=== PATIENT | female | born 1995 | race Caucasian/White ===

== ENCOUNTER 2017-09-09 07:50 | Inpatient (IN) | payer OTHER ==
[2017-09-09 08:35] VITALS: BMI 31.4
[2017-09-09 09:05] LABS: BASOPHIL 0.2 % (0-2.0); EOSINOPHIL 0.4 % (0-4.5); MCH 25.9 pg (25.7-33.7); MCHC 32.9 g/dl (32.0-36.0); MEAN CELL VOLUME 78.8 fl (80-96); MEAN PLT VOLUME 8.3 fl (7.5-11.1); NEUTROPHILS 73.7 % (42.8-82.8); PLATELET COUNT 261 K/MM3 (134-434); RDW 17.8 % (11.6-15.6); WHITE BLOOD COUNT 10.3 K/mm3 (4.0-10.0)
--- NOTE | 2017-09-09 09:08 | HP ---
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: Alzheimer's, CVA, Dementia, Migraine, Multiple Sclerosis, Peripheral Neuropathy, Parkinson's, Seizure, Syncope, TIA, Vertigo, Other Cardiovascular: No: AFIB, Aneurysm, Aortic Insufficiency, Aortic Stenosis, CAD, CHF, Deep Vein Thrombosis, HTN, Hyperlipdemia, WI, Mitral Insufficiency, Mitral Stenosis, Murmur, Pulmonary Hypertension, Other Pulmonary: Yes: Other (PPD(+)) Gastrointestinal: No: Ascites, Cancer, Constipation, Crohn's Disease, Diverticulitis, Diverticulosis, Esophageal Varices, Gastritis, GERD, GI Bleed, Hemorrhoids, Hiatal Hernia, Inflamatory Bowel Disease, Irritable Bowel Disease, Pancreatitis, Peptic Ulcer Disease, Ulcerative Colitis, Other Hepatobiliary: No: Cirrhosis, Cholelithiasis, Cholecystitis, Choledocholithiasis , Hepatitis A, Hepatitis B, Hepatitis C, Other Renal/: No: Renal Failure, Renal Inusuff, BPH, Cancer, Hematuria, Hemodialysis , Neurogenic Bladder, Renal Calculi, UTI, Other ...: 1 ...Para: 0 ...Term: 0 ...: 0 ...Spon : 0 ...Induced : 0 ...Multiple Gestation: 0 ...LMP: 12/16/16 ... Weeks Gestation by Dates: 40.6 ...EDC by Dates: 09/22/17 ...EDC by Sono: 09/03/17 Additional OB History: LIDA/IUD was removed at 37wks Heme/Onc: No: Anemia, B12 Deficiency, Bleeding Disorder, Cancer, Current Chemotherapy, Current Radiation Therapy, Hemochromatosis, Hypercoaguable State, Myeloproliferative Synd, Sickle Cell Disease, Sickle Cell Trait, Thrombocytopenia, Other Infectious Disease: No: AIDS, C-Diff, Herpes Zoster, HIV, MRSA, STD's, Tuberculosis, VREF, Other Psych: No: Addictions, Anxiety, Bipolar, Depression, Panic, Psychosis, Schizophrenia, Other Musculoskeletal: No: Bursitis, Chronic low back pain, Hemiparesis, Hemiplegia, Osteoarthritis, Paraplegia, Other Rheumatology: No: Fibromyalgia, Gout, Lupus, Rheumatoid Arthritis, Sarcoidosis, Vasculitis, Other ENT: No: Allergic Rhinitis, Sinusitis, Other Endocrine: No: Seth's Disease, Nava's Disease, Diabetes Insipidus, Diabetes Mellitus, Hyperparathyroidism, Hyperthyroidism, Hypothyroidism, Osteopenia, SIADH, Other Dermatology: No: Basal Cell, Cellulitis, Eczema, Melanoma, Psoriasis, Squamous Cell, Other - Past Surgical History Past Surgical History: Yes: None Hx Myomectomy: No Hx Transabdominal Cerclage: No - Smoking History Smoking history: Never smoked Have you smoked in the past 12 months: No - Alcohol/Substance Use Hx Alcohol Use: No History of Substance Use: reports: None - Social History Usual Living Arrangement: Yes: With Parent ADL: Independent History of Recent Travel: No Home Medications - Allergies Allergies/Adverse Reactions: Allergies Allergy/AdvReac Type Severity Reaction Status Date / Time No Known Allergies Allergy Verified 09/09/17 08:35 - Home Medications Home Medications: Ambulatory Orders Vit Calc,Iron,Folic [ Vitamins] 1 each PO DAILY 09/09/17 Family Disease History - Family Disease History Family History: Unremarkable Review of Systems - Review of Systems Constitutional: reports: No Symptoms Eyes: reports: No Symptoms HENT: reports: No Symptoms Neck: reports: No Symptoms Cardiovascular: reports: No Symptoms Respiratory: reports: No Symptoms Gastrointestinal: reports: No Symptoms Genitourinary: reports: No Symptoms Breasts: reports: No Symptoms Reported Musculoskeletal: reports: No Symptoms Integumentary: reports: No Symptoms Neurological: reports: No Symptoms Endocrine: reports: No Symptoms Hematology/Lymphatic: reports: No Symptoms Psychiatric: reports: No Symptoms Pain Intensity: 0 Physical Exam - Maternity Vital Signs: Vital Signs Temperature 97.9 F 09/09/17 08:15 Pulse Rate 90 09/09/17 08:15 Respiratory Rate 18 09/09/17 08:15 Blood Pressure 129/83 09/09/17 08:15 O2 Sat by Pulse Oximetry (%) Constitutional: Yes: Well Nourished, No Distress, Calm Eyes: Yes: WNL, Conjunctiva Clear HENT: Yes: WNL, Atraumatic, Normocephalic Neck: Yes: WNL, Supple, Trachea Midline Cardiovascular: Yes: WNL, Regular Rate and Rhythm Lungs: Clear to auscultation, Normal air movement - Abdominal Exam/OB Fundal Height: 40 Number of Fetuses: Single Presentation: Vertex Contractions: Yes Regularity: Irregular Intensity: Unaware Monitor Mode: External Heart Rate (range): 140 Heart Rate Location: Midline Category: I Accelerations: Uniform Decelerations: None - Vaginal Exam/OB Vaginal Bleediing: No Speculum Exam: No Dilatation (cm): 3 Effacement (%): 70 Amniotic Membrane Status: Intact Presentation: Vertex/Position Station: -3 (Adequate gynecoid pelvimetry, EFW ~3300gm) - Physical Exam Musculoskeletal: Yes: WNL Extremities: Yes: WNL Edema: Yes Edema: LLE: Trace, RLE: Trace Integumentary: Yes: WNL Deep Tendon Reflex Grade: Normal +2 ...Motor Strength: WNL Psychiatric: Yes: WNL, Alert, Oriented Hemorrhage Risk Assessment - Risk Factors Medium Risk Factors: Yes: None High Risk Factors: Yes: None Risk Score: 1 Risk Level: Medium Risk Imaging - Results Ultrasound: Report Reviewed Assessment/Plan 22yo P0 with at EGA 40w6d admitted for labor indx. Fetus with Category I tracing. We had land discussion re: risks, benefits, and alternatives of labor induction. I explained the options of expectant management awaiting spontaneous labor, induction of labor, and elective section. The risks of uterine tachysystole, distress, uterine rupture, need for emergency C/S, hemorrhage, infection, scarring, etc. were discussed. We also discussed the risks of meconium aspiration, shoulder dystocia , and anesthesia options.
[2017-09-09] MEDS: DEXTROSE 5%-LACTATED RINGERS 1,000 ML IV SCH ×2 (09:15→16:30)
[2017-09-09 09:26] LABS: ANION GAP 8 (8-16); CO2 24 mmol/L (21-32); CREATININE 0.5 mg/dL (0.55-1.02); GLUCOSE,RANDOM 72 mg/dL (74-106)
[2017-09-09] MEDS ORDERED: OXYTOCIN 15 UNITS/ LR 250 ML 250 ML IVPB SCH (09:30)
[2017-09-09] MEDS ORDERED: SODIUM CHLORIDE 1,000 ML IV SCH (09:56)
[2017-09-09 10:06] LABS: INR 0.97 (0.82-1.09)
[2017-09-09 10:09] LABS: ACTIVATED PTT 26.4 SECONDS (26.9-34.4)
[2017-09-09] MEDS ORDERED: ELECTROLYTE-148 SOLN 1,000 ML IV SCH (19:45)
[2017-09-09] MEDS ORDERED: FENTANYL/BUPIVACAINE/NS/PF - PCEA - 50 ML DISP.SYRIN EP SCH (20:30)
--- NOTE | 2017-09-09 21:06 | PN ---
Ante-Partal Exam - Subjective Subjective: Pt w/o complaints; s/p epidural, s/p AROM at 19:05 Vital Signs: Vital Signs Temperature 98.3 F 09/09/17 18:40 Pulse Rate 69 09/09/17 18:40 Respiratory Rate 18 09/09/17 18:40 Blood Pressure 118/72 09/09/17 18:40 O2 Sat by Pulse Oximetry (%) Bleeding: No Headache: No Visual changes: No Right upper quadrant pain: No Pain (scale 1-10): 0 - Contractions Contractions: Yes Regularity: Regular Intensity: Moderate Monitor Mode: External - Exam during Labor Heart Rate: 135 Variability: Moderate Heart Rate Location: Midline Category: I Monitor Accelerations: Present Monitor Decelerations: Early Exam: Vaginal Dilatation (cm): 5 Effacement (%): 90 Amniotic Membrane Status: Ruptured Amniotic Fluid: Clear Presentation: Vertex Station: -2 - Intrapartum Hemorrhage Risk Medium Risk Factors: None High Risk Factors: None Risk Score: 0 Risk Level: Low Risk - Assessment/Plan Assessment/Plan: 22yo P0 with pregnacy at EGA 40w6d admitted for labor induction. Fetus with Category I tracing and occasional early decels. Pt progressed to 5cm. Plan to continue monitoring labor progress.
[2017-09-10] MEDS ORDERED: BENZOCAINE 28 GM HEMORRHOIDAL OINTMENT TP PRN (02:28)
[2017-09-10] MEDS ORDERED: BENZOCAINE 20% 57 GM BOTTLE TP PRN (02:28)
[2017-09-10] MEDS ORDERED: IBUPROFEN 600 MG TABLET (FP) PO PRN (02:28)
[2017-09-10] MEDS ORDERED: BISACODYL 10 MG SUPP.RECT RC PRN (02:28)
[2017-09-10] MEDS ORDERED: METHYLERGONOVINE MALEATE 0.2 MG/1 ML AMP IM PRN (02:28)
[2017-09-10] MEDS ORDERED: ACETAMINOPHEN 325 MG TABLET (FP) PO PRN (02:28)
[2017-09-10] MEDS ORDERED: WITCH HAZEL 50% (TUCKS) 40 PAD/JAR PAD TP PRN (02:28)
[2017-09-10] MEDS ORDERED: D5W-LR W/ 20 UNITS OXYTOCIN 1,000 ML IV SCH (02:30)
--- NOTE | 2017-09-10 04:01 | RAPID ---
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 was getting up from bed, when she felt lightheaded No chest pain or pressure Had NVD DID NOT hit head Physical: VS: Vital Signs Period Temp Pulse Resp BP Sys/Joshi Pulse Ox Last 24 Hr 97.9 F-99.4 F 64-106 18-20 104-153/51-92 100-100 GEN: NAD, AA0X3, Resting in bed, speaking full sentences HEENT: NCAT, PERRL, Throat without erythema or exudates CARD: RRR S1, S2 RESP: CTAB ABD: BSx4, NTD to palpation EXT:- C/C/E A/P.) Syncope - Most likely has Vasovagal - Check CBC - FS checked 113 - Will continue to monitor Labs: CBC, BMP 09/09/17 08:55 09/09/17 08:55
[2017-09-10 04:04] LABS: MCH 25.7 pg (25.7-33.7); MCHC 32.4 g/dl (32.0-36.0); MEAN CELL VOLUME 79.2 fl (80-96); MEAN PLT VOLUME 8.9 fl (7.5-11.1); PLATELET COUNT 265 K/MM3 (134-434); RDW 17.7 % (11.6-15.6); WHITE BLOOD COUNT 21.4 K/mm3 (4.0-10.0)
--- NOTE | 2017-09-10 04:07 | RAPID ---
Physical Examination Vital Signs: Vital Signs Temperature 98.1 F 09/10/17 03:15 Pulse Rate 96 H 09/10/17 03:15 Respiratory Rate 20 09/10/17 03:15 Blood Pressure 117/70 09/10/17 03:15 O2 Sat by Pulse Oximetry (%) 100 09/10/17 03:15 Constitutional: Yes: Pallor Eyes: Yes: WNL HENT: Yes: WNL Cardiovascular: Yes: Tachycardia. No: Murmur Respiratory: Yes: WNL Labs: CBC, BMP 09/09/17 08:55 09/09/17 08:55 Rapid Response - Rapid Response Assessment: rapid response called for this 22 year old female P1 s/p delivery with no significant PMH who had a witnessed episode of syncope while walking to the bathroom. Per patient, she became flushed, hot, and heard muffled sounds before losing consciousness. Pt did not fall down or hit any part of her body. Vital signs revealed a BP of 110/60, HR of 84, RR of 20, and O2 sat of 98%. Her BGM was 113. Exam showed a pale-appearing woman with tachycardia, no murmurs, lungs that were CTAB without rales or wheezing. Assessment: 22F w/ no significant PMH who syncopized shortly after delivery while getting up from her bed, 2/2 to vasovagal response vs. orthostatic hypotension in the setting of blood loss from delivery Plan: -orthostatic vitals -CBC -continue fluids
[2017-09-10 05:55] LABS: METAMYELOCYTE 1 % (0-2); PLATELET ESTIMATE ADEQUATE (NORMAL); TOTAL CELLS COUNTED 100
--- NOTE | 2017-09-10 08:29 | PN ---
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 [id number].
[2017-09-10] MEDS: PRENATAL VITAMINS W/ FOLIC ACID TABLET (FP) PO SCH (11:55)
[2017-09-10 17:51] LABS: BASOPHIL 0.2 % (0-2.0); EOSINOPHIL 0.2 % (0-4.5); MCH 25.9 pg (25.7-33.7); MCHC 32.9 g/dl (32.0-36.0); MEAN CELL VOLUME 78.8 fl (80-96); NEUTROPHILS 71.8 % (42.8-82.8); PLATELET COUNT 222 K/MM3 (134-434); RDW 17.9 % (11.6-15.6); WHITE BLOOD COUNT 11.7 K/mm3 (4.0-10.0)
[2017-09-11 08:44] LABS: BASOPHIL 0.2 % (0-2.0); EOSINOPHIL 0.5 % (0-4.5); MCH 26.8 pg (25.7-33.7); MCHC 33.8 g/dl (32.0-36.0); MEAN CELL VOLUME 79.2 fl (80-96); MEAN PLT VOLUME 8.4 fl (7.5-11.1); NEUTROPHILS 68.4 % (42.8-82.8); PLATELET COUNT 182 K/MM3 (134-434); RDW 16.5 % (11.6-15.6); WHITE BLOOD COUNT 10.5 K/mm3 (4.0-10.0)
[2017-09-11] MEDS: PRENATAL VITAMINS W/ FOLIC ACID TABLET (FP) PO SCH (09:13)
--- NOTE | 2017-09-11 10:17 | PN ---
Post Progress Note - Subjective Subjective: Patient without acute complaints. Reports tolerating oral intake without nausea or vomiting. Ambulating without dizziness. Denies fevers or chills. Pain well controlled with oral pain medication. without difficulty. Passing flatus. Post Day: 1 Type of Delivery: Vital Signs: Vital Signs Temperature 97.5 F L 09/11/17 08:43 Pulse Rate 93 H 09/11/17 08:43 Respiratory Rate 20 09/11/17 08:43 Blood Pressure 112/61 09/11/17 08:43 O2 Sat by Pulse Oximetry (%) 100 09/10/17 07:00 Breast Exam: Yes: Soft Uterus: Yes: Fundus Firm, Fundus below umbilicus Abdomen/GI: Yes: Abdomen soft, Passing flatus, Tolerating PO. No: Tender Lochia: Yes: Serosa Lochia, amount: Small Extremities: Yes: Calves non-tender. No: Edema Activity: Ambulating - Labs Labs: CBC WBC 10.5 K/mm3 (4.0-10.0) H 09/11/17 07:00 RBC 3.33 M/mm3 (3.60-5.2) L D 09/11/17 07:00 Hgb 8.9 GM/dL (10.7-15.3) L D 09/11/17 07:00 Hct 26.4 % (32.4-45.2) L D 09/11/17 07:00 MCV 79.2 fl (80-96) L 09/11/17 07:00 MCH 26.8 pg (25.7-33.7) 09/11/17 07:00 MCHC 33.8 g/dl (32.0-36.0) 09/11/17 07:00 RDW 16.5 % (11.6-15.6) H 09/11/17 07:00 Plt Count 182 K/MM3 (134-434) 09/11/17 07:00 MPV 8.4 fl (7.5-11.1) 09/11/17 07:00 Total Counted 100 09/10/17 03:50 Neutrophils % 68.4 % (42.8-82.8) 09/11/17 07:00 Neutrophils % (Manual) 85 % (42.8-82.8) H 09/10/17 03:50 Band Neuts % (Manual) 3 % (0-10) 09/10/17 03:50 Lymphocytes % 23.7 % (8-40) D 09/11/17 07:00 Lymphocytes % (Manual) 9 % (8-40) 09/10/17 03:50 Monocytes % 7.2 % (3.8-10.2) 09/11/17 07:00 Monocytes % (Manual) 2 % (3.8-10.2) L 09/10/17 03:50 Eosinophils % 0.5 % (0-4.5) D 09/11/17 07:00 Basophils % 0.2 % (0-2.0) 09/11/17 07:00 Platelet Estimate Adequate (NORMAL) 09/10/17 03:50 Assessment/Plan 22 yo PPD #1 s/p with symptomatic anemia 1. Symptomatic anemia, s/p rapid response after delivery. noted to have tachycardia to 120s with standing, repeat H/H 6.6 /20. s/p 2 u pRBC. Reports feeling well. Will start ferrous sulfate. Precautions reviewed. 2. Will continue routine care 3. Rh positive status, no rhogam indicated. 4. Encourage ambulation and incentive spirometer use 5. Continue oral pain medication 6. Anticipate discharge home #2
[2017-09-11] MEDS ORDERED: SENNOSIDES/DOCUSATE COMBO (SENNA PLUS) TABLET (UD) PO PRN (22:00)
--- NOTE | 2017-09-12 09:20 | DS ---
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: Vital Signs Temperature 98.2 F 09/11/17 21:45 Pulse Rate 74 09/11/17 21:45 Respiratory Rate 18 09/11/17 21:45 Blood Pressure 124/81 09/11/17 21:45 O2 Sat by Pulse Oximetry (%) 100 09/10/17 07:00 Constitutional: Yes: Well Nourished, No Distress, Calm Eyes: Yes: WNL, Conjunctiva Clear, EOM Intact HENT: Yes: WNL, Atraumatic, Normocephalic Neck: Yes: WNL, Supple, Trachea Midline Cardiovascular: Yes: WNL, Regular Rate and Rhythm Respiratory: Yes: WNL, Regular, CTA Bilaterally Gastrointestinal: Yes: WNL ...Rectal Exam: Yes: WNL Renal/: Yes: WNL ....Post : Yes: Uterus firm, Uterus non-tender, Slight lochia rubra Breast(s): Yes: WNL Musculoskeletal: Yes: WNL Extremities: Yes: WNL Integumentary: Yes: WNL Neurological: Yes: WNL, Alert, Oriented ...Motor Strength: WNL Psychiatric: Yes: WNL, Alert, Oriented Labs: CBC, BMP 09/11/17 07:00 09/09/17 08:55 Delivery - Delivery Vaginal Delivery: No Problems, Spontaneous Type of Anesthesia: Local, Epidural Episiotomy/Laceration: Vaginal Extension/lac, 2nd degree EBL (cc): 500 Delivery, Single - Stages of Labor Date 1st Stage Initiatied: 09/09/17 Time 1st Stage Initiated: 19:45 Date 2nd Stage Initiated: 09/10/17 Time 2nd Stage Initiated: 00:20 Date of Delivery: 09/10/17 Time of Delivery: 01:57 Time Placenta Delivered: 02:20 Placenta: Yes: Spontaneous, Normal Configuration - 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 iron ,if heavy vaginal bleeding, pain, dizziness call md Referrals: Scottie Lowe MD [Staff Physician] - Disposition: HOME - Home Medications Comprehensive Discharge Medication List: Ambulatory Orders Vit Calc,Iron,Folic [ Vitamins] 1 each PO DAILY 09/09/17 Ibuprofen [Motrin -] 600 mg PO QID #28 tablet 09/11/17 Ferrous Sulfate [Feosol] 325 mg PO BID #60 tablet 09/12/17
[2017-09-12] MEDS: PRENATAL VITAMINS W/ FOLIC ACID TABLET (FP) PO SCH (11:22)
[2017-09-12 11:30] VITALS: BP 122/73; PULSE 75; TEMP 97.7
== END 2017-09-12 11:45 | disposition home or self-care (01) | DRG 560 ==
LOC: JLDR 07:50 → J3W 09-10 09:15
PROVIDERS: ADMIT Obstetrics & Gynecology; ATTEND Obstetrics & Gynecology
PROC: 10E0XZZ Delivery of Products of Conception, External Approach (ICD-10-PCS; principal; 2017-09-09)
PROC: 0KQM0ZZ Repair Perineum Muscle, Open Approach (ICD-10-PCS; 2017-09-10)
DX: O48.0 Post-term pregnancy (principal); O76 Abnormality in fetal heart rate and rhythm complicating labor and delivery; O72.1 Other immediate postpartum hemorrhage; O70.1 Second degree perineal laceration during delivery; O75.4 Other complications of obstetric surgery and procedures; I47.1 Supraventricular tachycardia; O90.81 Anemia of the puerperium; O36.0930 Maternal care for other rhesus isoimmunization, third trimester, not applicable or unspecified; O75.89 Other specified complications of labor and delivery; R55 Syncope and collapse; Z3A.40 40 weeks gestation of pregnancy; Z37.0 Single live birth
CPT/HCPCS: 36415; 36430; 36511; 59409; 80048; 85025; 85027; 85610; 85730; 86593; 86850; 86900; 86901; 86922; P9038; P9058